=== PATIENT | female | born 1980 | race Caucasian/White ===

== ENCOUNTER 2020-08-05 11:47 | Emergency (ER) | payer OTHER, SELFPAY ==
[2020-08-05 11:54] VITALS: BP 114/45; PULSE 79; RESP 18; TEMP 37.1; O2SAT 100; BMI 32.8
[2020-08-05] MEDS: Lidocaine HCl 1 % MPF 5 ML VIAL SUBCUT (13:15)
[2020-08-05] MEDS: Lidocaine HCl Viscous 2 % 15 ML SOLUTION 10 ML MUCOUS MEM (13:16)
[2020-08-05] MEDS: Penicillin V Potassium 250 MG TABLET 500 MG PO (13:16)
--- NOTE | 2020-08-05 14:10 | PC.NURSE ---
5 sutures placed inside mouth lower gum line/lip line by deburring technician. pt tolerated procedure well.
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
== END 2020-08-05 14:34 | disposition home or self-care (01) ==
PROVIDERS: Emergency Provider Emergency Medicine; PCP Physician Assistant Medical
DX: S01.512A Laceration without foreign body of oral cavity, initial encounter (principal); Y04.2XXA Assault by strike against or bumped into by another person, initial encounter; Y93.9 Activity, unspecified; Y92.9 Unspecified place or not applicable; Y99.9 Unspecified external cause status
CPT/HCPCS: 12013; 99283; 99284

== ENCOUNTER 2022-09-02 14:14 | Emergency (ER) | payer OTHER, SELFPAY ==
--- NOTE | ~2022-09-02 | CT_ITS ---
EXAMINATION: CT HEAD WITHOUT CONTRAST CLINICAL INFORMATION: Pain. COMPARISON: None. TECHNIQUE: Contiguous axial imaging was performed from the skull base to vertex without intravenous administration of contrast. Coronal and sagittal reformatted images are performed at the CT scanner. [This CT examination was performed using dose optimization techniques as appropriate, variously including the following: *Automated exposure control *Adjustment of mA and/or kV according to patient size (this includes techniques or standardized protocols for targeted exams where dose is matched to indication/reason for exam; i.e. extremities or head) *Use of iterative reconstruction technique] DLP: 709 mGy-cm. FINDINGS: There is no evidence of acute intracranial hemorrhage or territorial infarction. No abnormal mass-effect or midline shift is seen. Mcghee to white matter differentiation is well preserved. No extra-axial fluid collections are identified. The ventricles are normal in size. There is no abnormal attenuation within the brain parenchyma. There is no osseous abnormality. The mastoid air cells and visualized portions of the paranasal sinuses are well-aerated. CT/CT head/brain wo IV con IMPRESSION: No acute intracranial pathology.
[2022-09-02 14:23] VITALS: BP 139/89; PULSE 85; RESP 18; TEMP 36.6; O2SAT 98; BMI 37.5
--- NOTE | 2022-09-02 14:23 | ED.URI ---
HPI - URI/Sore Throat General Chief Complaint: Dizziness <BOBY Carlson - Last Filed: 09/02/22 18:22> Stated Complaint: Dizziness/Body aches/Headaches <BOBY Carlson Last Filed: 09/02/22 18:22> Time Seen by Provider: 09/02/22 22:24 <BOBY Carlson - Last Filed: 09/02/22 18:22> Source: patient, RN notes reviewed and old records reviewed <Yehuda Perdomo - Last Filed: 09/03/22 01:46> Mode of arrival: ambulatory <Yehuda Perdomo - Last Filed: 09/03/22 01:46> Limitations: no limitations <Yehuda Perdomo - Last Filed: 09/03/22 01:46> History of Present Illness HPI Narrative: 41-year-old female past medical history significant for arthritis, asthma, depression, anxiety presents for evaluation of ?dizzy spells. ? Patient reports that she has had a headache for last 3 days. She states that she generally gets tension headaches and this initially felt like that. The pain now radiates to the front of her face which she describes as ?sinus. ? She states that several times throughout the last 3 days she has felt dizzy and ?I feel like I am going to black out but then I calmed down and stop when I am doing. ? The patient has not had any syncopal episodes or fainting. She rates her discomfort as 5/10. Patient denies any history of vertigo Her symptoms seem to be worse when she stands up too fast She also complains of right ear discomfort Denies any fevers, chills, cough <Yehuda Perdomo - Last Filed: 09/03/22 01:46> Related Data Home Medications: Previous Rx's Medication Instructions Recorded amoxicillin 875 mg-potassium 1 tab PO Q12H 10 days #20 tabs 08/05/20 clavulanate 125 mg tablet (Augmentin) meclizine 25 mg tablet 25 mg PO TID PRN dizziness #15 tabs 09/03/22 <BOBY Carlson Last Filed: 09/02/22 18:22> Allergies/Adverse Reactions: Allergies Allergy/AdvReac Type Severity Reaction Status Date / Time No Known Allergies Allergy Verified 09/02/22 14:23 <BOBY Carlson - Last Filed: 09/02/22 18:22> Review of Systems Constitutional: Constitutional: Reports as per HPI, Denies chills, Denies fatigue, Denies fever(s) and Reports headache(s) <Yehuda Perdomo - Last Filed: 09/03/22 01:46> ENT: Reports headache(s) <Yehuda Perdomo - Last Filed: 09/03/22 01:46> Cardiovascular: Cardiovascular: Denies chest pain and Denies dyspnea <Yehuda Perdomo - Last Filed: 09/03/22 01:46> Respiratory: Respiratory: Denies cough and Denies dyspnea <Yehuda Perdomo - Last Filed: 09/03/22 01:46> Gastrointestinal: Gastrointestinal: Denies abdominal pain, Denies constipation and Denies vomiting <Yehuda Perdomo - Last Filed: 09/03/22 01:46> Genitourinary: Genitourinary: Denies dysuria <Yehuda Perdomo - Last Filed: 09/03/22 01:46> Neurologic: Reports headache(s) and Denies focal weakness <Yehuda Perdomo - Last Filed: 09/03/22 01:46> Endocrine: Endocrine: Denies fatigue <Yehuda Perdomo - Last Filed: 09/03/22 01:46> [facility] Past Medical History Medical History: Medical History (Updated 09/03/22 @ 01:46 by Yehuda Perdomo) Anxiety Asthma Depression <BOBY Carlson - Last Filed: 09/02/22 18:22> Social History Social History: Social History Advance Directives: No Advance Directives Information Provided: Yes <BOBY Carlson - Last Filed: 09/02/22 18:22> Physical Exam Vital Signs: Vital Signs: Last Vital Signs Temp 98.7 F 09/03/22 01:10 Pulse 90 09/03/22 01:10 Resp 17 09/03/22 01:10 BP 157/60 H 09/03/22 01:10 Pulse Ox 100 09/03/22 01:10 O2 Del Method 09/03/22 01:10 BMI result Body Mass Index 37.5 <BOBY Carlson - Last Filed: 09/02/22 18:22> Vital Signs: Last Vital Signs Temp 98.7 F 09/03/22 01:10 Pulse 90 09/03/22 01:10 Resp 17 09/03/22 01:10 BP 157/60 H 09/03/22 01:10 Pulse Ox 100 09/03/22 01:10 O2 Del Method 09/03/22 01:10 BMI result Body Mass Index 37.5 <Yehuda EllisMoisés - Last Filed: 09/03/22 01:46> Const: General: healthy appearing, comfortable, no acute distress, alert and awake <Yehuda O - Last Filed: 09/03/22 01:46> Nutritional Appearance: well nourished < - Last Filed: 09/03/22 01:46> Orientation/consciousness: patient oriented x3 <Yehuda - Last Filed: 09/03/22 01:46> HEENT: Head: Yes normocephalic and Yes atraumatic <Yehuda - Last Filed: 09/03/22 01:46> Ears: external ears normal, TM's normal bilaterally, TM normal on the right and TM normal on the left <Yehuda - Last Filed: 09/03/22 01:46> Throat: Yes posterior oropharynx normal <Yehuda - Last Filed: 09/03/22 01:46> Eyes: Periorbital: periorbital findings normal <Yehuda Victoria - Last Filed: 09/03/22 01:46> Eyelids: Yes eyelids normal <Yehuda Last Filed: 09/03/22 01:46> Conjunctivae: conjunctivae normal <Yehuda - Last Filed: 09/03/22 01:46> Sclerae: sclerae normal < - Last Filed: 09/03/22 01:46> Corneas: corneas normal <Yehuda - Last Filed: 09/03/22 01:46> Pupils: Equal, round and reactive pupils present <Yehuda OVictoria - Last Filed: 09/03/22 01:46> EOM: EOMs intact bilaterally <Yehuda OVictoria - Last Filed: 09/03/22 01:46> Neck: Neck: Yes full ROM <Yehuda O Last Filed: 09/03/22 01:46> Resp: Effort & Inspection: normal respiratory effort, able to speak in complete sentences, no audible wheezes and not labored <Yehuda O Last Filed: 09/03/22 01:46> Auscultation: clear to auscultation bilaterally < Last Filed: 09/03/22 01:46> Cardio: Rate: regular rate <Yehuda Rhonda Last Filed: 09/03/22 01:46> Rhythm: regular rhythm < Last Filed: 09/03/22 01:46> GI: Inspection: No distended <Yehuda Rhonda Last Filed: 09/03/22 01:46> Palpation (GI): Soft to palpation, not firm, nontender, no guarding and not rigid <Yehuda Rhonda Last Filed: 09/03/22 01:46> Auscultation: normoactive bowel sounds <Yehuda O Last Filed: 09/03/22 01:46> Skin: General skin exam: no rashes or lesions noted and elasticity normal <Yehuda O Last Filed: 09/03/22 01:46> Neuro: General: patient oriented x3 <Yehuda OVictoria - Last Filed: 09/03/22 01:46> Cranial nerves: Yes CN's II-XII intact bilaterally, Yes Equal, round and reactive pupils present and Yes Bilaterally intact EOM present <Yehuda O Last Filed: 09/03/22 01:46> Cognition (Neuro): normal cognition <Yehuda O Last Filed: 09/03/22 01:46> Gait exam (Neuro): Normal gait present <Yehuda OVictoria - Last Filed: 09/03/22 01:46> Motor exam (neuro): 5/5 motor strength present throughout <Yehuda RhondaVictoria - Last Filed: 09/03/22 01:46> Coordination: [id number] test normal <Yehuda Perdomo - Last Filed: 09/03/22 01:46> Course Course Course Narrative: RME--41yo F w/PMHx anxiety, asthma, depression, c/o dizzy spells worse with position changes described at feeling pre-syncopal x3 days. Admits to associated feeling heavy and chest pressure w/visual changes during episodes. denies GUZMAN, SOB VSS, Ambulating w/steady gait EKG, Labs, UA, orthos ordered <BOBY Carlosn - Last Filed: 09/02/22 18:22> Reevaluation(s) Reevaluation #1: Patient's symptoms resolve, she is not dizzy but states that she is tired and wants to go home I will discharge the patient on meclizine she will follow-up with her PCP. CT scan discussed with the patient <Yehuda Perdomo - Last Filed: 09/03/22 01:46> Time: 01:44 <Yehuda Perdomo - Last Filed: 09/03/22 01:46> Medications Administered Discontinued Medications Generic Name Dose Route Start Last Admin Trade Name Freq PRN Reason Stop Dose Admin Sodium Chloride 1,000 mls @ 999 mls/hr 09/02/22 23:15 09/03/22 01:30 Ns IV 09/03/22 00:15 Infused .Q1H1M DARIA Infusion Meclizine HCl 25 mg 09/02/22 23:02 09/02/22 23:36 Meclizine Hcl 25 Mg Tablet PO 09/02/22 23:03 25 mg ONCE ONE Administration <BOBY Carlson - Last Filed: 09/02/22 18:22> Medications Administered Discontinued Medications Generic Name Dose Route Start Last Admin Trade Name Freq PRN Reason Stop Dose Admin Sodium Chloride 1,000 mls @ 999 mls/hr 09/02/22 23:15 09/03/22 01:30 Ns IV 09/03/22 00:15 Infused .Q1H1M DARIA Infusion Meclizine HCl 25 mg 09/02/22 23:02 09/02/22 23:36 Meclizine Hcl 25 Mg Tablet PO 09/02/22 23:03 25 mg ONCE ONE Administration <Yehuda Perdomo - Last Filed: 09/03/22 01:46> Medical Decision Making Medical Decision Making [facility] Narrative: Likely, the patient is describing vertigo like symptoms. She does complain of right ear pain although her physical exam in the right ear is benign. She has a negative cerebellar exam. Low suspicion for posterior CVA. The patient is ambulatory without any difficulty. Will do a cardiac workup including EKG, labs with troponin. She has no risk factors for coronary artery disease, I doubt ACS or cardiogenic etiology of her symptoms. The patient states that her dizziness is worse with positional changes, therefore will treat with fluids and meclizine. Will also get orthostatics to evaluate for dehydration. Patient is requesting his CT scan the brain as her headache feels different than usual which was ordered. She does however have no neuro deficit <Yehuda Perdomo - Last Filed: 09/03/22 01:46> Differential Diagnosis Vertigo Dizziness Orthostasis Syncope Arrhythmia <Yehuda Perdomo - Last Filed: 09/03/22 01:46> Lab Data [facility] Lab Attestation statement: I reviewed the patient's lab results. <Yehuda Perdomo - Last Filed: 09/03/22 01:46> No significant lab abnormalities <Yehuda Perdomo - Last Filed: 09/03/22 01:46> Result Diagrams: 09/02/22 14:36 09/02/22 14:36 <BOBY Carlson - Last Filed: 09/02/22 18:22> Labs: Lab Results 09/02/22 09/02/22 09/02/22 Range/Units 14:36 14:36 14:36 WBC 6.3 (4.8-10.8) X10*3/uL RBC 4.44 (4.20-5.50) X10*6/uL Hgb 13.0 (12.0-16.0) g/dl Hct 40.9 (37.0-47.0) % MCV 92.1 (80.0-98.0) fL MCH 29.3 (27.0-33.0) pg MCHC 31.8 (31.0-35.0) g/dl RDW 13.1 (11.0-16.0) % Plt Count 313 (160-400) X10*3/uL MPV 8.9 L (9.4-12.3) fL Immature Gran % (Auto) 0.2 (0.0-0.4) % Neut % (Auto) 57.2 (45-73) % Lymph % (Auto) 33.1 (20-40) % [place] % (Auto) 8.6 (2-11) % Eos % (Auto) 0.6 (0-4) % Baso % (Auto) 0.3 (0-2) % Lymph # (Auto) 2.1 (1.2-4.9) X10*3/uL [place] # (Auto) 0.5 (0.1-1.2) X10*3/uL Eos # (Auto) 0.0 (0.0-0.4) X10*3/uL Baso # (Auto) 0.0 (0.0-0.2) X10*3/uL Abs Immat Gran (auto) 0.01 (0.00-0.03) X10*3/uL Absolute Neuts (auto) 3.6 (2.0-8.3) x10*3/uL Absolute Nucleated RBC 0.000 (0.0-0.012) X10*3/uL Nucleated RBC % (auto) 0.0 (0.0-0.2) /100WBC Sodium 142 (135-145) mmol/L Potassium 3.8 (3.3-5.1) mmol/L Chloride 107 (96-108) mmol/L Carbon Dioxide 26 (22-29) mmol/L Anion Gap 13 (12-20) BUN 10 (9-16) mg/dL Creatinine 0.79 (0.5-1.4) mg/dL Estim Creat Clear Calc 120.3 Estimated GFR > 60 Random Glucose 95 (60-115) mg/dL Calcium 9.1 (8.4-10.2) mg/dL Magnesium 1.8 (1.6-2.6) mg/dL Total Bilirubin 0.5 (0.0-1.0) mg/dL Direct Bilirubin 0.2 (0.0-0.5) mg/dL AST 18 (5-31) U/L ALT 16 (0-31) U/L Alkaline Phosphatase 65 (39-117) U/L Troponin I High Sens < 3.5 (<3.5-17.0) ng/L Total Protein 7.2 (6.5-8.0) g/dL Albumin 4.1 (3.5-5.0) g/dL Urine Color Urine Appearance Urine pH (5.0-9.0) Ur Specific [place] (1.005-1.025) Urine Protein (Neg-Trace) mg/dL Urine Glucose (UA) (Negative) mg/dL Urine Ketones (Negative) mg/dL Urine Blood (Negative) Urine Nitrite (Negative) Ur Leukocyte Esterase (Negative) Urine Test (NEGATIVE) COVID-19 (JASMINE) (Negative) COVID-19 Clin Com 09/02/22 09/02/22 09/02/22 Range/Units 14:36 22:53 22:53 WBC (4.8-10.8) X10*3/uL RBC (4.20-5.50) X10*6/uL Hgb (12.0-16.0) g/dl Hct (37.0-47.0) % MCV (80.0-98.0) fL MCH (27.0-33.0) pg MCHC (31.0-35.0) g/dl RDW (11.0-16.0) % Plt Count (160-400) X10*3/uL MPV (9.4-12.3) fL Immature Gran % (Auto) (0.0-0.4) % Neut % (Auto) (45-73) % Lymph % (Auto) (20-40) % [place] % (Auto) (2-11) % Eos % (Auto) (0-4) % Baso % (Auto) (0-2) % Lymph # (Auto) (1.2-4.9) X10*3/uL [place] # (Auto) (0.1-1.2) X10*3/uL Eos # (Auto) (0.0-0.4) X10*3/uL Baso # (Auto) (0.0-0.2) X10*3/uL Abs Immat Gran (auto) (0.00-0.03) X10*3/uL Absolute Neuts (auto) (2.0-8.3) x10*3/uL Absolute Nucleated RBC (0.0-0.012) X10*3/uL Nucleated RBC % (auto) (0.0-0.2) /100WBC Sodium (135-145) mmol/L Potassium (3.3-5.1) mmol/L Chloride (96-108) mmol/L Carbon Dioxide (22-29) mmol/L Anion Gap (12-20) BUN (9-16) mg/dL Creatinine (0.5-1.4) mg/dL Estim Creat Clear Calc Estimated GFR Random Glucose (60-115) mg/dL Calcium (8.4-10.2) mg/dL Magnesium (1.6-2.6) mg/dL Total Bilirubin (0.0-1.0) mg/dL Direct Bilirubin (0.0-0.5) mg/dL AST (5-31) U/L ALT (0-31) U/L Alkaline Phosphatase (39-117) U/L Troponin I High Sens (<3.5-17.0) ng/L Total Protein (6.5-8.0) g/dL Albumin (3.5-5.0) g/dL Urine Color Yellow Urine Appearance Cloudy Urine pH 6.5 (5.0-9.0) Ur Specific [place] 1.020 (1.005-1.025) Urine Protein Negative (Neg-Trace) mg/dL Urine Glucose (UA) Negative (Negative) mg/dL Urine Ketones 15 (Negative) mg/dL Urine Blood Negative (Negative) Urine Nitrite Negative (Negative) Ur Leukocyte Esterase Negative (Negative) Urine Test NEGATIVE (NEGATIVE) COVID-19 (JASMINE) Negative (Negative) COVID-19 Clin Com See Note <BOBY Carlson - Last Filed: 09/02/22 18:22> Lab Results 09/02/22 09/02/22 09/02/22 Range/Units 14:36 14:36 14:36 WBC 6.3 (4.8-10.8) X10*3/uL RBC 4.44 (4.20-5.50) X10*6/uL Hgb 13.0 (12.0-16.0) g/dl Hct 40.9 (37.0-47.0) % MCV 92.1 (80.0-98.0) fL MCH 29.3 (27.0-33.0) pg MCHC 31.8 (31.0-35.0) g/dl RDW 13.1 (11.0-16.0) % Plt Count 313 (160-400) X10*3/uL MPV 8.9 L (9.4-12.3) fL Immature Gran % (Auto) 0.2 (0.0-0.4) % Neut % (Auto) 57.2 (45-73) % Lymph % (Auto) 33.1 (20-40) % [place] % (Auto) 8.6 (2-11) % Eos % (Auto) 0.6 (0-4) % Baso % (Auto) 0.3 (0-2) % Lymph # (Auto) 2.1 (1.2-4.9) X10*3/uL [place] # (Auto) 0.5 (0.1-1.2) X10*3/uL Eos # (Auto) 0.0 (0.0-0.4) X10*3/uL Baso # (Auto) 0.0 (0.0-0.2) X10*3/uL Abs Immat Gran (auto) 0.01 (0.00-0.03) X10*3/uL Absolute Neuts (auto) 3.6 (2.0-8.3) x10*3/uL Absolute Nucleated RBC 0.000 (0.0-0.012) X10*3/uL Nucleated RBC % (auto) 0.0 (0.0-0.2) /100WBC Sodium 142 (135-145) mmol/L Potassium 3.8 (3.3-5.1) mmol/L Chloride 107 (96-108) mmol/L Carbon Dioxide 26 (22-29) mmol/L Anion Gap 13 (12-20) BUN 10 (9-16) mg/dL Creatinine 0.79 (0.5-1.4) mg/dL Estim Creat Clear Calc 120.3 Estimated GFR > 60 Random Glucose 95 (60-115) mg/dL Calcium 9.1 (8.4-10.2) mg/dL Magnesium 1.8 (1.6-2.6) mg/dL Total Bilirubin 0.5 (0.0-1.0) mg/dL Direct Bilirubin 0.2 (0.0-0.5) mg/dL AST 18 (5-31) U/L ALT 16 (0-31) U/L Alkaline Phosphatase 65 (39-117) U/L Troponin I High Sens < 3.5 (<3.5-17.0) ng/L Total Protein 7.2 (6.5-8.0) g/dL Albumin 4.1 (3.5-5.0) g/dL Urine Color Urine Appearance Urine pH (5.0-9.0) Ur Specific [place] (1.005-1.025) Urine Protein (Neg-Trace) mg/dL Urine Glucose (UA) (Negative) mg/dL Urine Ketones (Negative) mg/dL Urine Blood (Negative) Urine Nitrite (Negative) Ur Leukocyte Esterase (Negative) Urine Test (NEGATIVE) COVID-19 (JASMINE) (Negative) COVID-19 Clin Com 09/02/22 09/02/22 09/02/22 Range/Units 14:36 22:53 22:53 WBC (4.8-10.8) X10*3/uL RBC (4.20-5.50) X10*6/uL Hgb (12.0-16.0) g/dl Hct (37.0-47.0) % MCV (80.0-98.0) fL MCH (27.0-33.0) pg MCHC (31.0-35.0) g/dl RDW (11.0-16.0) % Plt Count (160-400) X10*3/uL MPV (9.4-12.3) fL Immature Gran % (Auto) (0.0-0.4) % Neut % (Auto) (45-73) % Lymph % (Auto) (20-40) % [place] % (Auto) (2-11) % Eos % (Auto) (0-4) % Baso % (Auto) (0-2) % Lymph # (Auto) (1.2-4.9) X10*3/uL [place] # (Auto) (0.1-1.2) X10*3/uL Eos # (Auto) (0.0-0.4) X10*3/uL Baso # (Auto) (0.0-0.2) X10*3/uL Abs Immat Gran (auto) (0.00-0.03) X10*3/uL Absolute Neuts (auto) (2.0-8.3) x10*3/uL Absolute Nucleated RBC (0.0-0.012) X10*3/uL Nucleated RBC % (auto) (0.0-0.2) /100WBC Sodium (135-145) mmol/L Potassium (3.3-5.1) mmol/L Chloride (96-108) mmol/L Carbon Dioxide (22-29) mmol/L Anion Gap (12-20) BUN (9-16) mg/dL Creatinine (0.5-1.4) mg/dL Estim Creat Clear Calc Estimated GFR Random Glucose (60-115) mg/dL Calcium (8.4-10.2) mg/dL Magnesium (1.6-2.6) mg/dL Total Bilirubin (0.0-1.0) mg/dL Direct Bilirubin (0.0-0.5) mg/dL AST (5-31) U/L ALT (0-31) U/L Alkaline Phosphatase (39-117) U/L Troponin I High Sens (<3.5-17.0) ng/L Total Protein (6.5-8.0) g/dL Albumin (3.5-5.0) g/dL Urine Color Yellow Urine Appearance Cloudy Urine pH 6.5 (5.0-9.0) Ur Specific [place] 1.020 (1.005-1.025) Urine Protein Negative (Neg-Trace) mg/dL Urine Glucose (UA) Negative (Negative) mg/dL Urine Ketones 15 (Negative) mg/dL Urine Blood Negative (Negative) Urine Nitrite Negative (Negative) Ur Leukocyte Esterase Negative (Negative) Urine Test NEGATIVE (NEGATIVE) COVID-19 (JASMINE) Negative (Negative) COVID-19 Clin Com See Note <Yehuda Perdomo - Last Filed: 09/03/22 01:46> Independent Interpretation I performed an independent interpretation of an: EKG (Sinus rhythm with a rate of 69 beats per minute. No ectopy, no ST segment elevation [place]) <Yehuda Perdomo - Last Filed: 09/03/22 01:46> Radiology Impression Discussion of test interpretation with radiology: I have reviewed the radiologist's reading. <Yehuda Perdomo - Last Filed: 09/03/22 01:46> Radiologist Impression: No significant abnormality to brain CT <Yehuda Perdomo - Last Filed: 09/03/22 01:46> Discharge Plan Discharge Clinical Impression: Benign paroxysmal positional vertigo <BOBY Carlson - Last Filed: 09/02/22 18:22> Patient Disposition: Home, Self-Care <BOBY Carlson - Last Filed: 09/02/22 18:22> Instructions: Vertigo (ED) <BOBY Carlson - Last Filed: 09/02/22 18:22> Additional Instructions: Your workup in the emergency department was reassuring. This includes your CT scan of her brain. Take meclizine for any. Further dizziness follow-up with your PCP <BOBY Carlson - Last Filed: 09/02/22 18:22> Prescriptions: New meclizine 25 mg tablet 25 mg PO TID PRN (Reason: dizziness) Qty: 15 0RF No Action amoxicillin-pot clavulanate [Augmentin] 875-125 mg tablet 1 tab PO Q12H 10 Days Qty: 20 0RF <BOBY Carlson - Last Filed: 09/02/22 18:22>
--- NOTE | 2022-09-02 14:24 | ECG_ITS ---
Test Reason : migraine Blood Pressure : / mmHG Vent. Rate : 069 BPM Atrial Rate : 069 BPM P-R Int : 152 ms QRS Dur : 076 ms QT Int : 386 ms P-R-T Axes : 040 047 032 degrees QTc Int : 413 ms Normal sinus rhythm Normal ECG No previous ECGs available Referred By: Jazlyn Higuera Electronically Signed By:Dieudonne Shipman
[2022-09-02 14:45] LABS: MANUAL DIFF FLAG NO
[2022-09-02 14:49] LABS: Basophils Percent Auto 0.3 % (0-2); Eosinophils Percent Auto 0.6 % (0-4); Hematocrit 40.9 % (37.0-47.0); Imm Gran Abs Auto 0.01 X10*3/uL (0.00-0.03); Imm Gran Pct Auto 0.2 % (0.0-0.4); Lymphocytes Absolute Auto 2.1 X10*3/uL (1.2-4.9); Lymphocytes Percent Auto 33.1 % (20-40); Mean Corpuscular HGB Conc 31.8 g/dl (31.0-35.0); Mean Corpuscular Hemoglobin 29.3 pg (27.0-33.0); Mean Corpuscular Volume 92.1 fL (80.0-98.0); Mean Platelet Volume 8.9 fL (9.4-12.3); Monocytes Absolute Auto 0.5 X10*3/uL (0.1-1.2); Monocytes Percent Auto 8.6 % (2-11); Neutrophils Absolute Auto 3.6 x10*3/uL (2.0-8.3); Neutrophils Percent Auto 57.2 % (45-73); Platelet Count 313 X10*3/uL (160-400); Red Blood Count 4.44 X10*6/uL (4.20-5.50); Red Cell Distribution Width 13.1 % (11.0-16.0); White Blood Count 6.3 X10*3/uL (4.8-10.8)
[2022-09-02 15:05] LABS: Alanine Aminotransferase 16 U/L (0-31); Albumin Level 4.1 g/dL (3.5-5.0); Alkaline Phosphatase 65 U/L (39-117); Anion Gap 13 (12-20); Aspartate Amino Transferase 18 U/L (5-31); Bilirubin Direct 0.2 mg/dL (0.0-0.5); Bilirubin Total 0.5 mg/dL (0.0-1.0); Blood Urea Nitrogen 10 mg/dL (9-16); Calcium 9.1 mg/dL (8.4-10.2); Carbon Dioxide 26 mmol/L (22-29); Chloride 107 mmol/L (96-108); Creatinine Clr Calc Pharmacy 120.3; Estimated Glomerular Filt Rate > 60; Glucose Random 95 mg/dL (60-115); Magnesium 1.8 mg/dL (1.6-2.6); Potassium 3.8 mmol/L (3.3-5.1); Sodium 142 mmol/L (135-145); Total Protein 7.2 g/dL (6.5-8.0)
[2022-09-02 15:10] LABS: COVID-19 Test Negative (Negative); IDNOW Serial# 6674DD1D
[2022-09-02 15:15] LABS: Troponin-I High Sensitivity < 3.5 ng/L (<3.5-17.0)
[2022-09-02 23:00] LABS: Appearance Urine Cloudy; Color Urine Yellow; Glucose Urine UA Negative (Negative); Leukocyte Esterase Urine Negative (Negative); Nitrite Urine Negative (Negative); PH 6.5 (5.0-9.0); Urine Blood Negative (Negative); Urine Ketones 15 mg/dL (Negative); Urine Protein Negative (Neg-Trace)
[2022-09-02 23:01] LABS: UPreg QC Valid YES; Urine Pregnancy NEGATIVE (NEGATIVE)
[2022-09-02 23:02] VITALS: BP 133/79; PULSE 67
[2022-09-02 23:05] VITALS: BP 129/78; PULSE 65
[2022-09-02 23:08] VITALS: BP 145/97; PULSE 81
--- NOTE | 2022-09-02 23:20 | PC.NURSE ---
late entry- this rn performed bedside swallow eval. pt passed with no delayed effort swallowing or repeat swallowing
[2022-09-02] MEDS: 0.9 % Sodium Chloride 1,000 ML 999 ML IV (23:29)
[2022-09-02] MEDS: Meclizine HCl 25 MG TABLET PO (23:36)
[2022-09-03 01:10] VITALS: BP 157/60; PULSE 90; RESP 17; TEMP 37.1; O2SAT 100
--- NOTE | 2022-09-03 02:11 | PC.NURSE ---
iv removed at time of discharge. pt calm and cooperative. pt ambulatory at discharge. skin pwd. pt provided with discharge packet. pt verbalized understanding of discharge plan
== END 2022-09-03 02:12 | disposition home or self-care (01) ==
PROVIDERS: Physician Assistant; Emergency Provider Emergency Medicine Emergency Medical Services; PCP Internal Medicine
DX: H81.10 Benign paroxysmal vertigo, unspecified ear (principal); Z20.822 Contact with and (suspected) exposure to COVID-19
CPT/HCPCS: 36415; 70450; 80048; 80076; 81003; 81025; 83735; 84484; 85025; 87635; 93005; 96360; 96361; 99284; 99285